=== PATIENT | female | born 1990 | race Caucasian/White ===

== ENCOUNTER 2018-11-14 11:05 | Emergency (ER) | payer OTHER ==
[2018-11-14 12:17] VITALS: BP 119/92; PULSE 74; TEMP 98.6; BMI 26.4
[2018-11-14 12:53] LABS: URINE APPEARANCE CLOUDY; URINE BILIRUBIN NEGATIVE (<2.0 mg/dL); URINE COLOR LTYELLOW; URINE GLUCOSE (UA) NEGATIVE (NEGATIVE); URINE KETONE TRACE (NEGATIVE); URINE LEUK ESTERASE 1+ (NEGATIVE); URINE NITRITE NEGATIVE (NEGATIVE); URINE PROTEIN NEGATIVE (NEGATIVE); URINE UROBILINOGEN NEGATIVE mg/dL (0.2-1.0)
--- NOTE | 2018-11-14 12:53 | PDOC ---
History of Present Illness - General Chief Complaint: Vaginal Sxs Stated Complaint: CYST Time Seen by Provider: 11/14/18 12:31 History Source: Patient Exam Limitations: No Limitations - History of Present Illness Travel History: No Initial Comments: 11/14/18 patient came in exquisite pain of abscess to involve a/vaginal lips. was seen 3 times at another emergency Department the past 2 weeks and only given antibiotics, which was amoxicillin and Tylenol for pain relief. has had fevers and chills, has tried hot soaks to the area without any changes and in fact has become more painful and swollen. Has never had a Bartholin's cyst or any abscess lesions Timing/Duration: reports: getting worse Quality: reports: moderate, severe, aching, stabbing Alleviating Factors: improves with: None Past History - Travel Traveled outside of the country in the last 30 days: No Close contact w/someone who was outside of country & ill: No - Past Medical History Allergies/Adverse Reactions: Allergies Allergy/AdvReac Type Severity Reaction Status Date / Time No Known Allergies Allergy Verified 11/14/18 12:38 Home Medications: Ambulatory Orders Amox-Clav 875-125 mg Tablet 11/14/18 Oxycodone HCl/Acetaminophen [Percocet 5-325 mg Tablet -] 1 - 2 tab PO Q4H PRN # 10 tablet MDD 4 11/14/18 Sulfamethoxazole/Trimethoprim [Bactrim *Ds*] 1 each PO BID #14 tablet 11/14/18 - Suicide/Smoking/Psychosocial Hx Smoking History: Unknown if ever smoked Hx Alcohol Use: No Drug/Substance Use Hx: No Review of Systems - Review of Systems Able to Perform ROS?: Yes Is the patient limited [place] proficient: Yes Constitutional: Yes: Symptoms Reported, See HPI, Malaise. No: Fever HEENTM: No: Symptoms Reported Respiratory: No: Symptoms reported : Yes: Symptoms Reported, See HPI, Dysuria, Discharge Musculoskeletal: No: Symptoms Reported Integumentary: Yes: Symptoms Reported, See HPI, Lesions. No: Bruising Neurological: Yes: See HPI. No: Symptoms reported All Other Systems: Reviewed and Negative *Physical Exam - Vital Signs Last Vital Signs Temp Pulse Resp BP Pulse Ox 98.6 F 74 68 H 119/92 99 11/14/18 12:13 11/14/18 12:13 11/14/18 12:13 11/14/18 12:13 11/14/18 12:13 - Physical Exam General Appearance: Yes: Nourished, Appropriately Dressed, Apparent Distress, Moderate Distress, Severe Distress HEENT: positive: GEETHA, Normal ENT Inspection, TMs Normal, Pharynx Normal Neck: positive: Supple. negative: Tender Respiratory/Chest: positive: Lungs Clear Female Pelvic Exam: positive: discharge, Bartholin mass (with exquisite tenderness and swelling). negative: normal external exam Gastrointestinal/Abdominal: positive: Soft. 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, Fully Oriented, Alert, Normal Mood/ Affect Moderate Sedation - Procedure Monitoring Vital Signs: Procedure Monitoring Vital Signs Temperature 98.6 F 11/14/18 12:13 Pulse Rate 74 11/14/18 12:13 Respiratory Rate 68 H 11/14/18 12:13 Blood Pressure 119/92 11/14/18 12:13 O2 Sat by Pulse Oximetry (%) 99 11/14/18 12:13 Procedures - Incision and Drainage I&D Site: Right: Bartholin (incised abcess ~ 10cm2 =) Anesthesia: 1% Lidocaine Blade Size: 11 Iodinated Packin/ in Plain Packing: Yes Complications: none Dressing: Yes Progress Note - Progress Note Progress Note: Bartholin's abscess incised and drained for large amount of pus, started on Bactrim and given one tablet of Percocet *DC/Admit/Observation/Transfer Diagnosis at time of Disposition: Bartholin's gland abscess - Discharge Dispostion Disposition: HOME Condition at time of disposition: Stable Decision to Admit order: No - Prescriptions Prescriptions: Oxycodone HCl/Acetaminophen [Percocet 5-325 mg Tablet -] 1 - 2 tab PO Q4H PRN # 10 tablet MDD 4 PRN Reason: Pain Sulfamethoxazole/Trimethoprim [Bactrim *Ds*] 1 each PO BID #14 tablet - Referrals - Patient Instructions Printed Discharge Instructions: DI for Incision and Drainage of a Skin Abscess Additional Instructions: Rest, keep area elevated. Avoid strenuous activity or exercise until wound is healed Use hot soaks to area to bring more blood to the surface and encourage drainage May change dressings as needed to keep clean - trying to avoid removal of packing for 2 days. If packing needs to be changed, return to emergency department or with your followup physician for wound care and evaluation and repacking as needed If packing needs to be removed, then in 2 days, while in the shower remove dressing and quickly pull the packing taken out. Allow water from shower to wash area thoroughly for 2-3 minutes, and pat dry upon exit of shower and replace dressing. Change his dressing daily until the wound is completely healed. May use Tylenol or Motrin for mild pain relief Use stronger medications as directed and prescribed Continue all medications as prescribed Followup with private physician in 2-3 days for wound check Return to emergency Department for worsening swelling, pain, redness, fevers as needed - Post Discharge Activity Forms/Work/School Notes: Back to Work
[2018-11-14 12:55] LABS: HCG,QUALITATIVE URINE Negative
[2018-11-14 12:57] LABS: EPI CELLS MODERATE /HPF (FEW); URINE BACTERIA RARE /hpf (NONE SEEN); URINE MUCUS RARE
[2018-11-14] MEDS ORDERED: SULFAMETHOXAZOLE/TRIMETHOPRIM 800MG/160MG D.S. TABLET ONE (13:10)
[2018-11-14] MEDS ORDERED: SULFAMETHOXAZOLE/TRIMETHOPRIM 800MG/160MG D.S. TABLET PO ONE (13:21)
== END 2018-11-14 14:13 | disposition home or self-care (01) ==
LOC: JER 11:05
PROC: 0U9L0ZZ Drainage of Vestibular Gland, Open Approach (ICD-10-PCS; principal; 2018-11-14)
DX: N75.8 Other diseases of Bartholin's gland (principal); N75.1 Abscess of Bartholin's gland
CPT/HCPCS: 36415; 56420; 81003; 81015; 84703; 87086; 87491; 87591; 99281-25

== ENCOUNTER 2018-11-16 12:30 | Emergency (ER) | payer OTHER ==
[2018-11-16 12:48] VITALS: BP 109/65; PULSE 55; TEMP 97.8; BMI 26.2
[2018-11-16] MEDS ORDERED: IBUPROFEN 600 MG TABLET (FP) PO ONE (13:18)
--- NOTE | 2018-11-16 13:23 | PDOC ---
History of Present Illness - General Chief Complaint: Revisit,Wound Recheck Stated Complaint: SENT BY PCP Time Seen by Provider: 11/16/18 12:52 History Source: Patient, Friend Exam Limitations: No Limitations - History of Present Illness Initial Comments: 11/16/18 13:22 Patient returns today for wound check and packing change/removal of Bartholin's abscess that was incised and drained by myself 2 days ago. Patient appears in states is significantly improved, no fevers, no pain, has had significant drainage from the area. Packing has remained intact. Is continuing antibiotics and he has used Percocet for pain management Timing/Duration: 1 week Severity: mild Associated Symptoms: reports: denies symptoms, malaise. denies: fever/chills Past History - Travel Traveled outside of the country in the last 30 days: No Close contact w/someone who was outside of country & ill: No - Past Medical History Allergies/Adverse Reactions: Allergies Allergy/AdvReac Type Severity Reaction Status Date / Time No Known Allergies Allergy Verified 11/16/18 12:48 Home Medications: Ambulatory Orders Oxycodone HCl/Acetaminophen [Percocet 5-325 mg Tablet -] 1 - 2 tab PO Q4H PRN # 10 tablet MDD 4 11/14/18 Sulfamethoxazole/Trimethoprim [Bactrim *Ds*] 1 each PO BID #14 tablet 11/14/18 COPD: No Psychiatric Problems: Yes (anxiety, bipolar, depression) - Suicide/Smoking/Psychosocial Hx Smoking History: Current every day smoker Number of Cigarettes Smoked Daily: 2 Information on smoking cessation initiated: No Hx Alcohol Use: No Drug/Substance Use Hx: No Review of Systems - Review of Systems Able to Perform ROS?: Yes Is the patient limited Faro[place] proficient: Yes Constitutional: Yes: See HPI. No: Symptoms Reported, Chills, Fever HEENTM: Yes: See HPI. No: Symptoms Reported Respiratory: No: Symptoms reported Musculoskeletal: No: Symptoms Reported Integumentary: No: Symptoms Reported All Other Systems: Reviewed and Negative *Physical Exam - Vital Signs Last Vital Signs Temp Pulse Resp BP Pulse Ox 97.8 F 55 L 14 109/65 100 11/16/18 12:45 11/16/18 12:45 11/16/18 12:45 11/16/18 12:45 11/16/18 12:45 - Physical Exam General Appearance: Yes: Nourished, Appropriately Dressed, Apparent Distress HEENT: positive: GEETHA, Normal ENT Inspection, TMs Normal, Pharynx Normal Neck: positive: Supple. negative: Tender Respiratory/Chest: positive: Lungs Clear Extremity: positive: Normal Capillary Refill, Normal Inspection. negative: Tender Integumentary: positive: Normal Color, Dry, Other ([place] within normal limits now , appearance of cyst and abscess completely resolved. 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, Fully Oriented, Alert, Normal Mood/ Affect, Normal Response, Motor Strength 5/5 Moderate Sedation - Procedure Monitoring Vital Signs: Procedure Monitoring Vital Signs Temperature 97.8 F 11/16/18 12:45 Pulse Rate 55 L 11/16/18 12:45 Respiratory Rate 14 11/16/18 12:45 Blood Pressure 109/65 11/16/18 12:45 O2 Sat by Pulse Oximetry (%) 100 11/16/18 12:45 Medical Decision Making - Medical Decision Making 11/16/18 13:26 Bartholin abscess resolved will continue antibiotics and follow-up with [facility] [employer] [facility] next week for reevaluation of possible cyst removal *DC/Admit/Observation/Transfer Diagnosis at time of Disposition: Wound check, abscess - Discharge Dispostion Disposition: HOME Condition at time of disposition: Stable Decision to Admit order: No - Referrals - Patient Instructions Printed Discharge Instructions: DI for Bartholin Gland Cyst Additional Instructions: Rest, keep area elevated. Avoid strenuous activity or exercise until wound is healed Use hot soaks to area to bring more blood to the surface and encourage drainage May change dressings as needed to keep clean - Allow water from shower to wash area thoroughly for 2-3 minutes, and pat dry upon exit of shower and replace dressing. Change his dressing daily until the wound is completely healed. May use Tylenol or Motrin for mild pain relief Use stronger medications as directed and prescribed Continue all medications as prescribed Followup with private physician in 2-3 days for wound check Return to emergency Department for worsening swelling, pain, redness, fevers as needed - Post Discharge Activity Forms/Work/School Notes: Back to Work
== END 2018-11-16 13:35 | disposition home or self-care (01) ==
LOC: JERFT 12:30
DX: Z48.817 Encounter for surgical aftercare following surgery on the skin and subcutaneous tissue (principal); Z48.01 Encounter for change or removal of surgical wound dressing; N75.1 Abscess of Bartholin's gland
CPT/HCPCS: 99281-25

== ENCOUNTER 2019-05-13 09:46 | Emergency (ER) | payer OTHER ==
[2019-05-13 09:54] VITALS: BP 125/61; PULSE 57; TEMP 98.3; BMI 27.8
--- NOTE | 2019-05-13 10:05 | PDOC ---
*Physical Exam - Vital Signs Last Vital Signs Temp Pulse Resp BP Pulse Ox 98.3 F 57 L 14 125/61 100 05/13/19 09:49 05/13/19 09:49 05/13/19 09:49 05/13/19 09:49 05/13/19 09:49 Medical Decision Making - Medical Decision Making 05/13/19 10:04 28 yo F, , ~11-12 weeks by dates w/ multiple US, last time last week which showed "an early " per pt, here w/ vaginal bleeding x 3 days that worsened today. 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 Her beta was over 4000 with no evidence of infection on your urine and your Rh+. Please follow-up with your OB this week for reassessment - Post Discharge Activity
--- NOTE | 2019-05-13 10:07 | PDOC ---
History of Present Illness - General Chief Complaint: Vaginal Bleeding Stated Complaint: PREG/VAGINAL BLEEDING Time Seen by Provider: 05/13/19 10:02 History Source: Patient - History of Present Illness Timing/Duration: reports: getting worse Past History - Past Medical History Allergies/Adverse Reactions: Allergies Allergy/AdvReac Type Severity Reaction Status Date / Time No Known Allergies Allergy Verified 05/13/19 09:49 Home Medications: Ambulatory Orders Oxycodone HCl/Acetaminophen [Percocet 5-325 mg Tablet -] 1 - 2 tab PO Q4H PRN # 10 tablet MDD 4 11/14/18 Sulfamethoxazole/Trimethoprim [Bactrim *Ds*] 1 each PO BID #14 tablet 11/14/18 COPD: No Psychiatric Problems: Yes (anxiety, bipolar, depression) - Immunization History Immunization Up to Date: No - Suicide/Smoking/Psychosocial Hx Smoking History: Current every day smoker Have you smoked in the past 12 months: Yes Number of Cigarettes Smoked Daily: 1 Information on smoking cessation initiated: Yes Hx Alcohol Use: No Drug/Substance Use Hx: No Review of Systems - Review of Systems Constitutional: No: Chills, Fever ABD/GI: Yes: Abdominal cramping. No: Nausea, Vomiting : No: Burning, Dysuria, Flank Pain, Hematuria *Physical Exam - Vital Signs Last Vital Signs Temp Pulse Resp BP Pulse Ox 98.3 F 57 L 14 125/61 100 05/13/19 09:49 05/13/19 09:49 05/13/19 09:49 05/13/19 09:49 05/13/19 09:49 - Physical Exam General Appearance: Yes: Appropriately Dressed. No: Apparent Distress HEENT: positive: Normal Voice Neck: positive: Supple Respiratory/Chest: negative: Respiratory Distress Gastrointestinal/Abdominal: positive: Soft. negative: Tender Musculoskeletal: negative: CVA Tenderness Integumentary: positive: Dry, Warm Neurologic: positive: Fully Oriented, Alert, Normal Mood/Affect Medical Decision Making - Medical Decision Making 05/13/19 10:06 28 yo F, , ~11-12 weeks by dates w/ multiple US, last time last week which showed "an early " per pt, here w/ vaginal bleeding x 3 days that worsened today. Has some mild abd cramps. No dysuria, n/v/f/c See exam Possible spon AB vs vag bleed in nl preg s/p multiple US showing "an early " per pt Does not remember beta results from [address] [place] -Stable and well marian here -beta -US -T&S -UA 05/13/19 12:29 5 w 6 d IUP on ultrasound with no heart activity, possibly due to pole size per report, consider demise. Beta over 4000 with no e/o infection on UA and RH +. 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 Her beta was over 4000 with no evidence of infection on your urine and your Rh+. Please follow-up with your OB this week for reassessment - Post Discharge Activity
[2019-05-13 10:59] LABS: EPI CELLS 3.4 /HPF (0-5/HPF); HYALINE CASTS 2 /lpf (0-8); URINE APPEARANCE CLEAR; URINE BACTERIA 43.2 /hpf (NEGATIVE); URINE BILIRUBIN NEGATIVE (NEGATIVE); URINE COLOR YELLOW; URINE GLUCOSE (UA) NEGATIVE (NEGATIVE); URINE KETONE NEGATIVE (NEGATIVE); URINE LEUK ESTERASE TRACE (NEGATIVE); URINE NITRITE NEGATIVE (NEGATIVE); URINE PROTEIN NEGATIVE (NEGATIVE); URINE RBC 1 /hpf (0-4); URINE UROBILINOGEN 0.2 mg/dL (0.2-1.0); URINE WBC 1 /hpf (0-5)
== END 2019-05-13 12:32 | disposition home or self-care (01) ==
LOC: JER 09:46
DX: O20.0 Threatened abortion (principal); Z3A.01 Less than 8 weeks gestation of pregnancy; F17.210 Nicotine dependence, cigarettes, uncomplicated
CPT/HCPCS: 36415; 76817-TC; 81003; 84702; 84703; 86850; 86900; 86901; 87086; 99281-25

== ENCOUNTER 2019-05-15 | Emergency (ER) | payer OTHER ==
--- NOTE | 2019-05-15 00:08 | PDOC ---
History of Present Illness - General Stated Complaint: PAIN IN LOWER PELVIC AREA Time Seen by Provider: 05/15/19 00:08 History Source: Patient Exam Limitations: No Limitations - History of Present Illness Initial Comments: 28 year old female with no PMH A0 (LMP 02/28/19) presented to ED for increasing vaginal bleeding and lower abdominal cramping since today. Pt reported she came to ED yesterday for vaginal spotting, was told she was , that there was an intrauterine , but it may be too early to see a heart beat. Pt reported she saw her OBGYN today, had a pap smear performed , then felt intense pain and had increased bleeding and cramping. She stated her OBGYN told her her based on her cervical examination that she would likely miscarry. Pt reported she soaked through 1 pad, then saw a large clot in the toilet, and since then the bleeding has decreased but the cramping has continued. Pt denied dysuria, nausea, vomiting, headache, chest pain, shortness of breath, lightheadedness, vaginal discharge. Allergies: NKDA ROS General: denied fever, chills, generalized weakness. HEENT: denied sore throat, rhinorrhea, ear pain. Cardiovascular: denied chest pain, palpitations, syncope, diaphoresis. Respiratory: denied shortness of breath, cough, sputum production, hemoptysis. Gastrointestinal: admitted to abdominal pain. denied nausea, vomiting, diarrhea , constipation, blood in stool. Genitourinary: admitted to vaginal bleeding. denied dysuria, increased urinary frequency, hematuria, urinary incontinence, flank pain. Back: denied back pain. Musculoskeletal: denied joint pain, muscle pain, joint swelling. Neurological: denied headache, dizziness, numbness, tingling, weakness. Integumentary: denied rash, laceration, abrasion. Hematologic/Lymphatic: denied bruising or bleeding. PE Constitutional: Well-nourished, Well-developed, appearing stated age. HEENT: head is normocephalic, atraumatic. EOMI. PERRLA. Neck: supple. Full ROM. Cardiovascular: regular heart rhythm. no murmurs. no pericardial friction rub. Respiratory: clear to auscultation bilaterally. no crackles, rhonchi or wheezing. no stridor. Gastrointestinal: soft, nontender. normal bowel sounds. no rebound, guarding, masses. Extremities: peripheral pulses intact. no lower extremity edema. Neurological: CN 2-12 grossly intact. moves all four extremities. Psych: awake, alert, oriented x3. follows commands. answers questions appropriately. Pelvic: normal external genitalia. blood in vaginal canal, no pooling. no clots. cervix unable to be visualized. no CMT. no adnexal tenderness to palpation. Past History - Past Medical History Allergies/Adverse Reactions: Allergies Allergy/AdvReac Type Severity Reaction Status Date / Time No Known Allergies Allergy Verified 05/15/19 00:46 COPD: No Psychiatric Problems: Yes (anxiety, bipolar, depression) - Immunization History Immunization Up to Date: No - Suicide/Smoking/Psychosocial Hx Smoking History: Current every day smoker Have you smoked in the past 12 months: Yes Number of Cigarettes Smoked Daily: 1 Hx Alcohol Use: No Drug/Substance Use Hx: No ED Treatment Course - LABORATORY CBC & Chemistry Diagram: 05/15/19 00:36 05/15/19 00:36 Medical Decision Making - Medical Decision Making 28 year old female wit above PMH presented to ED for increasing vaginal bleeding , lower pelvic cramping since pap-smear today. Initial Vital Signs Temp Pulse Resp BP Pulse Ox 98.4 F 64 15 141/73 99 05/15/19 00:41 05/15/19 00:41 05/15/19 00:41 05/15/19 00:41 05/15/19 00:41 Afebrile. No tachycardia. No tachypnea. Mild hypertension. No hypoxia on room air. Chart review: -Seen in [facility] ED for vaginal spotting -TVUS report: Name: [facility] Phys: Vee Lai : 1990 Age: 28 Sex: F [facility] Acct: [id number] Loc: [address] Exam Date: 05/13/19 Status: [place] [id number] Unit Number: [id number] EXAM#: TYPE/EXAM: RESULT: US/TRANSVAGINAL US PREG First trimester bleed. Pelvis ultrasound, transvaginal Initial transabdominal images were obtained followed with a transvaginal ultrasound. The uterus is gravid measuring 10 x 5 cm. An intrauterine gestation sac with a pole are identified. The crown-rump length measures 3 mm compatible with 5 weeks 6 days of gestation. heart activity could not be detected. Uterine cervix appears unremarkable. Normal appearing right ovary measuring 2.8 x 2.4 cm with normal vascular flow. Normal-appearing left ovary measuring 2.7 x 1.6 cm with normal vascular flow. There is no free fluid in the cul-de-sac IMPRESSION: Single intrauterine with estimated sonographic gestational age of 5 weeks 6 days based on the crown-rump length. No heart activity could be detected. Although this may be due to the pole size, demise should be considered. Correlation with serial quantitative serum beta hCG levels and close follow-up ultrasound is needed for further evaluation. Reported By: Carlos Funes MD 05/13/19 1205 -T&S showed Rh (+) -Discharged with OB F/U Labs ordered: CBC, CMP, lipase, beta-hcg, T/S, UA/UC Imaging ordered: TVUS Medications ordered: NONE 05/15/19 01:45 TVUS report: single intrauterine gestational sac containing yolk sac and pole. moderate debris within the gestational sac. crown-rump length corresponds to 6 weeks 1 day. No cardiac activity is noted. Findings are suspicious for demise. cervix appears closed. 05/15/19 01:49 Pt given copy of report and results explained. Pt expressed understanding. CBC WBC 11.1 K/mm3 (4.0-10.0) H 05/15/19 00:36 RBC 4.15 M/mm3 (3.60-5.2) 05/15/19 00:36 Hgb 12.7 GM/dL (10.7-15.3) 05/15/19 00:36 Hct 38.3 % (32.4-45.2) 05/15/19 00:36 MCV 92.1 fl (80-96) 05/15/19 00:36 MCH 30.5 pg (25.7-33.7) 05/15/19 00:36 MCHC 33.1 g/dl (32.0-36.0) 05/15/19 00:36 RDW 13.7 % (11.6-15.6) 05/15/19 00:36 Plt Count 375 K/MM3 (134-434) 05/15/19 00:36 MPV 8.2 fl (7.5-11.1) 05/15/19 00:36 Absolute Neuts (auto) 6.8 K/mm3 (1.5-8.0) 05/15/19 00:36 Neutrophils % 61.2 % (42.8-82.8) 05/15/19 00:36 Lymphocytes % 30.2 % (8-40) 05/15/19 00:36 Monocytes % 6.2 % (3.8-10.2) 05/15/19 00:36 Eosinophils % 1.1 % (0-4.5) 05/15/19 00:36 Basophils % 1.3 % (0-2.0) 05/15/19 00:36 Nucleated RBC % 0 % (0-0) 05/15/19 00:36 Leukocytosis without left shift. No anemia. Urine Test Results Urine Color Yellow 05/15/19 00:36 Urine Appearance Clear 05/15/19 00:36 Urine pH 7.0 (5.0-8.0) 05/15/19 00:36 Ur Specific [place] 1.007 (1.010-1.035) L 05/15/19 00:36 Urine Protein Negative (NEGATIVE) 05/15/19 00:36 Urine Glucose (UA) Negative (NEGATIVE) 05/15/19 00:36 Urine Ketones Negative (NEGATIVE) 05/15/19 00:36 Urine Blood 2+ (NEGATIVE) H 05/15/19 00:36 Urine Nitrite Negative (NEGATIVE) 05/15/19 00:36 Urine Bilirubin Negative (NEGATIVE) 05/15/19 00:36 Ur Leukocyte Esterase Trace (NEGATIVE) 05/15/19 00:36 WBC = 1 Contaminated sample. No UTI. 05/15/19 02:04 CMP Sodium 139 mmol/L (136-145) 05/15/19 00:36 Potassium 3.7 mmol/L (3.5-5.1) 05/15/19 00:36 Chloride 106 mmol/L (98-107) 05/15/19 00:36 Carbon Dioxide 26 mmol/L (21-32) 05/15/19 00:36 Anion Gap 8 MMOL/L (8-16) 05/15/19 00:36 BUN 13.7 mg/dL (7-18) 05/15/19 00:36 Creatinine 0.7 mg/dL (0.55-1.3) 05/15/19 00:36 Est GFR (CKD-EPI)AfAm 136.66 05/15/19 00:36 Est GFR (CKD-EPI)NonAf 117.91 05/15/19 00:36 Random Glucose 86 mg/dL (74-106) 05/15/19 00:36 Calcium 9.5 mg/dL (8.5-10.1) 05/15/19 00:36 Total Bilirubin 0.3 mg/dL (0.2-1) 05/15/19 00:36 AST 15 U/L (15-37) 05/15/19 00:36 ALT 19 U/L (13-61) 05/15/19 00:36 Alkaline Phosphatase 71 U/L (45-117) 05/15/19 00:36 Total Protein 7.3 g/dl (6.4-8.2) 05/15/19 00:36 Albumin 4.3 g/dl (3.4-5.0) 05/15/19 00:36 Lipase 716 U/L (73-393) H 05/15/19 00:36 No electrolyte abnormalities. No OPHELIA. No transaminitis. Lipase elevated. -No epigastric pain -No vomiting -not 3X limit of normal. Pending beta-quant, T&S, Rho-kathy decision. 05/15/19 02:17 Beta 4076 - not increased from prior. Blood Type A POSITIVE 05/15/19 00:36 Pt and mother informed of likely spontaneous . Pt given expectant management. Pt and mother informed of elevated lipase, advised to have clear/liquid diet for 24 hours, repeat lipase testing in 1 week by PCP. Pt informed to F/U with OBGYN within 48 hours for repeat testing. *DC/Admit/Observation/Transfer Diagnosis at time of Disposition: Vaginal bleeding affecting early , Elevated lipase - Discharge Dispostion Disposition: HOME Condition at time of disposition: Stable Decision to Admit order: No - Referrals Referrals: Reba Rodriguez MD [Primary Care Provider] - - Patient Instructions Printed Discharge Instructions: Lipase, DI for Miscarriage, DI for Vaginal Bleeding During Additional Instructions: Your lipase level was elevated, drink clear liquids the next 24 hours and do not eat solid food to give your pancreas rest. Have this number repeated within 7 days by your primary care doctor. Follow up with your OBGYN within 48 hours. Your care is not complete until you follow up. Take Tylenol over the counter for pain. Take as advised on label. Return to the Emergency Department for fever, vomiting, soaking through >2 pads/ two hours, lightheadedness, chest pain, shortness of breath or any other new, worsening or concerning symptoms. - Post Discharge Activity Forms/Work/School Notes: Back to Work
[2019-05-15] MEDS ORDERED: ACETAMINOPHEN 1000 MG/100 ML VIAL (NON FORMULARY) IVPB ONE (00:23)
[2019-05-15] MEDS ORDERED: SODIUM CHLORIDE 1,000 ML IV STA (00:23)
[2019-05-15 00:46] VITALS: BP 141/73; PULSE 64; TEMP 98.4; BMI 27.0
--- NOTE | 2019-05-15 00:54 | PDOC ---
Documentation entered by Milly Ventura SCRIBE, acting as scribe for Andreina Peters DO. Andreina Peters DO: This documentation has been prepared by the Audrey salguero Xhesika, SCRIBE, under my direction and personally reviewed by me in its entirety. I confirm that the documentation accurately reflects all work, treatment, procedures, and medical decision making performed by me. Attending Attestation - Resident Resident Name: Lainey Greenwood - ED Attending Attestation I have performed the following: I have examined & evaluated the patient, The case was reviewed & discussed with the resident, I agree w/resident's findings & plan, Exceptions are as noted - HPI HPI: 05/15/19 00:55 The patient is a 28 year old female, A0 (LMP 02/28/19) with no significant PMH of who presents to the emergency department for vaginal bleeding associated with lower abdominal cramping. Patient was seen here in the ED yesterday for similar symptoms and US showed demise. Patient saw her UNIT EDUCATOR today, had a pap smear done and shortly after her symptoms began. Pt reported she used 1 pad and saw a large clot in the toilet. The patient denies chest pain, shortness of breath, headache and dizziness. Denies fever, chills, cough, nausea, vomiting, diarrhea and constipation. Denies dysuria, frequency, urgency and hematuria. Allergies: NKDA - Physicial Exam PE: 05/15/19 00:55 GENERAL: Awake, alert, and fully oriented, in no acute distress HEAD: No signs of trauma LUNGS: Breath sounds equal, clear to auscultation bilaterally. No wheezes, and no crackles HEART: Regular rate and rhythm, normal S1 and S2, no murmurs, rubs or gallops ABDOMEN: (+) mild suprapubic tenderness. Soft, normoactive bowel sounds. No guarding, no rebound. No masses. PELVIC: no active bleeding during exam. (+) blood in vault but not pooling EXTREMITIES: Normal range of motion, no edema. No clubbing or cyanosis. No cords, erythema, or tenderness NEUROLOGICAL: Cranial nerves II through XII grossly intact. Normal speech, normal gait SKIN: Warm, Dry, normal turgor, no rashes or lesions noted. - Medical Decision Making 05/15/19 00:51 I, Dr. Andreina Peters, DO, attest that this document has been prepared under my direction and personally reviewed by me in its entirety. I further attest, that it accurately reflects all work, treatment, procedures and medical decision -making performed by me. a/p: 28yo female at abou 5 weeks gestation with vaginal bleeding today -passed large clots, decreased bleeding at this time -seen in ED yesterday with beta around 4000 and IUP without heart rate [id number] poss early demise on ultrasound -seen by WORKERS COMPENSATION CLAIMS ANALYST today and bleeding after pelvic exam -no active bleeding during exam, blood in vault but not pooling -will repeat beta hcg and tvus -concern for threatened ab vs complete ab 05/15/19 00:54 A+ blood type 05/15/19 01:42 demise on ultrasound pending labs 05/15/19 02:04 no epigastric pain, no vomiting pt with demise and bleeding from ab elevated lipase on labs however no acute signs of pancreatitis pt notified of the lipase and will need repeat lab in 1 week as outpt 05/15/19 02:17 beta 4000 discussed expectant management and need for follow up with behavioral medical director to trend beta 05/15/19 02:17 stable for dc to home and follow up with WORKERS COMPENSATION CLAIMS ANALYST
[2019-05-15 01:32] LABS: BASO % 1.3 % (0-2.0); EOS % 1.1 % (0-4.5); HEMATOCRIT 38.3 % (32.4-45.2); HEMOGLOBIN 12.7 GM/dL (10.7-15.3); LYMPH % 30.2 % (8-40); MCH 30.5 pg (25.7-33.7); MCHC 33.1 g/dl (32.0-36.0); MEAN CELL VOLUME 92.1 fl (80-96); MEAN PLT VOLUME 8.2 fl (7.5-11.1); MONO % 6.2 % (3.8-10.2); NEUT % 61.2 % (42.8-82.8); PLATELET COUNT 375 K/MM3 (134-434); RBC 4.15 M/mm3 (3.60-5.2); RDW 13.7 % (11.6-15.6); WHITE BLOOD COUNT 11.1 K/mm3 (4.0-10.0)
[2019-05-15 01:52] LABS: EPI CELLS 1.5 /HPF (0-5/HPF); HYALINE CASTS 0 /lpf (0-8); URINE APPEARANCE CLEAR; URINE BACTERIA 7.8 /hpf (NEGATIVE); URINE BILIRUBIN NEGATIVE (NEGATIVE); URINE COLOR YELLOW; URINE GLUCOSE (UA) NEGATIVE (NEGATIVE); URINE KETONE NEGATIVE (NEGATIVE); URINE LEUK ESTERASE TRACE (NEGATIVE); URINE NITRITE NEGATIVE (NEGATIVE); URINE PROTEIN NEGATIVE (NEGATIVE); URINE RBC 1 /hpf (0-4); URINE UROBILINOGEN 0.2 mg/dL (0.2-1.0); URINE WBC 1 /hpf (0-5)
[2019-05-15 02:00] LABS: ALBUMIN 4.3 g/dl (3.4-5.0); BILIRUBIN,TOTAL 0.3 mg/dL (0.2-1); BLOOD UREA NITROGEN 13.7 mg/dL (7-18); CALCIUM 9.5 mg/dL (8.5-10.1); CREATININE 0.7 mg/dL (0.55-1.3); POTASSIUM 3.7 mmol/L (3.5-5.1); TOT PROT 7.3 g/dl (6.4-8.2)
== END 2019-05-15 02:33 | disposition home or self-care (01) ==
LOC: JER
DX: N93.9 Abnormal uterine and vaginal bleeding, unspecified (principal); O26.891 Other specified pregnancy related conditions, first trimester; Z3A.00 Weeks of gestation of pregnancy not specified; R79.9 Abnormal finding of blood chemistry, unspecified
CPT/HCPCS: 36415; 76817-TC; 80053; 81003; 83690; 84702; 85025; 86850; 86900; 86901; 87086; 99282-25